=== PATIENT | male | born 2000 | race Caucasian/White ===

== ENCOUNTER → 2020-10-21 | Outpatient (REF) ==
--- NOTE | 2020-10-21 13:50 | REP ---
INDICATION: SOB. COMPARISON: None. TECHNIQUE: PA and lateral FINDINGS: The superior mediastinal structures are midline. The cardiac silhouette is unremarkable in size, shape, and position. The diaphragmatic surfaces of the lungs are regular, and the costophrenic angles are clear. The pulmonary foley are clear. The imaged osseous structures are intact. IMPRESSION: There is no acute cardiopulmonary disease. <Electronically signed by Riki Reynoso > 10/21/20 [id number]
== END ==
LOC: M PLAIMG 12:30
PROVIDERS: ATTEND Internal Medicine
DX: R06.02 Shortness of breath (principal)